=== PATIENT | female | born 1955 | race Asian ===

== ENCOUNTER 2023-10-22 04:38 | Emergency (ER) | payer OTHER ==
[~2023-10-22] VITALS: Ht 162.6 cm; Wt 61.0 kg
[~2023-10-22 04:38] MED LIST: AMOX1TAB15 PO
[2023-10-22 04:45] VITALS: BP 144/55; PULSE 84; RESP 16; TEMP 98.1
[2023-10-22] MEDS ORDERED: ACET-2247 PO (06:29)
[2023-10-22] MEDS ORDERED: IBUP-1492 PO (06:29)
[2023-10-22] MEDS ORDERED: LIDO700A15 TP (06:29)
[2023-10-22] MEDS: LIDOCAINE 5% TRANSDERMAL PATCH TD ONE (06:33)
[2023-10-22] MEDS: IBUPROFEN 600 MG TABLET PO ONE (06:33)
== END 2023-10-22 06:42 | disposition home or self-care (01) ==
LOC: EMS 04:39
DX: S39.012A Strain of muscle, fascia and tendon of lower back, initial encounter (principal); E11.9 Type 2 diabetes mellitus without complications; E78.00 Pure hypercholesterolemia, unspecified; I10 Essential (primary) hypertension; Z90.49 Acquired absence of other specified parts of digestive tract; X50.0XXA Overexertion from strenuous movement or load, initial encounter; Y93.89 Activity, other specified; Y92.89 Other specified places as the place of occurrence of the external cause; Y99.8 Other external cause status
CPT/HCPCS: 99283